=== PATIENT | male | born 1990 | race American Indian/Alaskan Native ===

== ENCOUNTER 2022-01-28 02:44 | Emergency (ER) | payer OTHER ==
[~2022-01-28] VITALS: Ht 172.7 cm; Wt 113.4 kg
== END 2022-01-28 07:03 | disposition home or self-care (01) ==
LOC: ED 02:44
DX: F10.129 Alcohol abuse with intoxication, unspecified (principal); S00.212A Abrasion of left eyelid and periocular area, initial encounter; W19.XXXA Unspecified fall, initial encounter
CPT/HCPCS: 36415; 70450; 70486; 72125; 73590; 80053; 85025; 99284-25; G0480; J7030